=== PATIENT | female | born 2000 | race Caucasian/White ===

== ENCOUNTER 2020-01-06 20:12 | Emergency (ER) | payer OTHER ==
[~2020-01-06] VITALS: Ht 157.5 cm; Wt 72.7 kg
[2020-01-06 21:38] VITALS: BP 128/74; PULSE 62; TEMP 98.2
== END 2020-01-06 21:48 | disposition home or self-care (01) ==
LOC: COL.ER 20:12
DX: S61.215A Laceration without foreign body of left ring finger without damage to nail, initial encounter (principal); W25.XXXA Contact with sharp glass, initial encounter